=== PATIENT | male | born 1995 | race Caucasian/White ===

== ENCOUNTER 2020-05-31 14:47 | Outpatient (RCR) | payer BC, SELFPAY | END 2020-08-06 23:59 | LOC: IMMUN 14:47 | PROVIDERS: PCP Pediatrics; Visit Provider Family Medicine | DX: Z23 Encounter for immunization (principal) | CPT/HCPCS: 0001A; 0002A; 91300 ==

== ENCOUNTER 2020-12-12 10:49 | Outpatient (RCR) | payer BC, SELFPAY ==
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
--- NOTE | 2020-12-12 13:20 | HP.SP.DC ---
ST Discharge Summary - Discharged: Discharge: Patient was evaluated for a TBI on 12/12/20. The SCABI was administered and patient presented normal cognitive skills. No Speech therapy was recommended at this time.
== END 2020-12-12 13:49 | disposition home or self-care (01) ==
LOC: SP 10:49
PROVIDERS: PCP Pediatrics
DX: S06.6X9D Traumatic subarachnoid hemorrhage with loss of consciousness of unspecified duration, subsequent encounter (principal)